=== PATIENT | male | born 1970 | race Two or more races ===

== ENCOUNTER 2018-01-16 16:54 | Emergency (ER) | payer BC ==
--- NOTE | 2018-01-16 17:51 | EDM.PDOC ---
<Lacey Blanca - Last Filed: 01/16/18 18:53> ED HPI GENERAL MEDICAL PROBLEM - General Chief Complaint: Skin Complaint Stated Complaint: BUMP/SWELLING RT LEG Time Seen by Provider: 01/16/18 17:45 - Related Data Allergies Allergy/AdvReac Type Severity Reaction Status Date / Time No Known Allergies Allergy Verified 01/16/18 17:09 Home Meds: Home Meds . [No Known Home Meds] 01/16/18 [History] Course - Vital Signs Last Recorded V/S: Last Vital Signs Temp 98.8 F 01/16/18 17:05 Pulse 98 01/16/18 17:05 Resp 20 01/16/18 17:05 BP 160/88 H 01/16/18 17:05 Pulse Ox 97 01/16/18 17:05 - Orders/Labs/Meds Orders: Active Orders 24 hr Category Date Time Status CULTURE BLOOD [BC] Stat Lab 01/16/18 18:06 Received CULTURE BLOOD [BC] Stat Lab 01/16/18 18:19 Received Blood Culture x2 Reflex Set [OM.PC] Stat Oth 01/16/18 17:47 Ordered Labs: Laboratory Tests 01/16/18 01/16/18 01/16/18 Range/Units 18:06 18:06 18:06 WBC 12.18 H (4.0-11.0) K/uL RBC 4.82 (4.50-5.90) M/uL Hgb 14.5 (13.0-17.0) g/dL Hct 41.8 (38.0-50.0) % MCV 86.7 (80.0-98.0) fL MCH 30.1 (27.0-32.0) pg MCHC 34.7 (31.0-37.0) g/dL RDW Std Deviation 43.2 (28.0-62.0) fl RDW Coeff of Germaine 14 (11.0-15.0) % Plt Count 184 (150-400) K/uL MPV 11.60 (7.40-12.00) fL Neut % (Auto) 71.6 (48.0-80.0) % Lymph % (Auto) 19.5 (16.0-40.0) % [place] % (Auto) 7.6 (0.0-15.0) % Eos % (Auto) 1.1 (0.0-7.0) % Baso % (Auto) 0.2 (0.0-1.5) % Neut # (Auto) 8.7 H (1.4-5.7) K/uL Lymph # (Auto) 2.4 (0.6-2.4) K/uL [place] # (Auto) 0.9 H (0.0-0.8) K/uL Eos # (Auto) 0.1 (0.0-0.7) K/uL Baso # (Auto) 0.0 (0.0-0.1) K/uL Nucleated RBC % 0.0 /100WBC Nucleated RBCs # 0 K/uL Lactate 0.8 (0.20-2.00) mmol/L Sodium 139 (136-148) mmol/L Potassium 4.0 (3.5-5.1) mmol/L Chloride 104 (98-107) mmol/L Carbon Dioxide 24.7 (21.0-32.0) mmol/L BUN 27 H (7.0-18.0) mg/dL Creatinine 1.1 (0.8-1.3) mg/dL Est Cr Clr Drug Dosing 84.80 mL/min Estimated GFR (MDRD) > 60.0 ml/min Glucose 86 (74-106) mg/dL Calcium 9.2 (8.5-10.1) mg/dL Meds: Medications Discontinued Medications Generic Name Dose Route Start Last Admin Trade Name Freq PRN Reason Stop Dose Admin Ceftriaxone Sodium 1,000 mg/ 4 mls @ 4 mls/sec 01/16/18 18:48 Lidocaine HCl IM 01/16/18 18:49 ONETIME ONE Departure - Departure Disposition: Home, Self-Care 01 Clinical Impression: Cellulitis, Abscess - Discharge Information Referrals: PCP,None [Primary Care Provider] - Forms: ED Department Discharge Additional Instructions: The following information is given to patients seen in the emergency department who are being discharged to home. This information is to outline your options for follow-up care. We provide all patients seen in our emergency department with a follow-up referral. The need for follow-up, as well as the timing and circumstances, are variable depending upon the specifics of your emergency department visit. If you don't have a primary care physician on staff, we will provide you with a referral. We always advise you to contact your personal physician following an emergency department visit to inform them of the circumstance of the visit and for follow-up with them and/or the need for any referrals to a consulting specialist. The emergency department will also refer you to a specialist when appropriate. This referral assures that you have the opportunity for follow-up care with a specialist. All of these measure are taken in an effort to provide you with optimal care, which includes your follow-up. Under all circumstances we always encourage you to contact your private physician who remains a resource for coordinating your care. When calling for follow-up care, please make the office aware that this follow-up is from your recent emergency room visit. If for any reason you are refused follow-up, please contact the [facility] emergency department at and asked to speak to the emergency department charge nurse. [facility] [address] [place] [id number] Follow-up with your local primary care provider or at the clinic listed above in 48-72 hours. Call tomorrow to get scheduled for an appointment next week. Tylenol alternating with ibuprofen. Stay off your leg, rest, take antibiotics as prescribed. Return to ER as needed as discussed. - My Orders Last 24 Hours: My Active Orders 01/16/18 17:47 Blood Culture x2 Reflex Set [OM.PC] Stat 01/16/18 18:06 CULTURE BLOOD [BC] Stat 01/16/18 18:19 CULTURE BLOOD [BC] Stat - Assessment/Plan Last 24 Hours: My Active Orders 01/16/18 17:47 Blood Culture x2 Reflex Set [OM.PC] Stat 01/16/18 18:06 CULTURE BLOOD [BC] Stat 01/16/18 18:19 CULTURE BLOOD [BC] Stat <Oralia Sarmiento - Last Filed: 01/16/18 19:06> ED HPI GENERAL MEDICAL PROBLEM - General Source of Information: Reports: Patient History Limitations: Reports: No Limitations - History of Present Illness INITIAL COMMENTS - FREE TEXT/NARRATIVE: HISTORY AND PHYSICAL: History of present illness: [Patient comes to the emergency room complaining of right posterior lower leg pain for the past 4-5 days. Area has become red, warm to touch, and swollen. Denies any injury and trauma. No previous history of similar injury. Has not taken any medication for his symptoms, but has applied mint and Tea Tree oil to his wound. ] Review of systems: As per history of present illness and below otherwise all systems reviewed and negative. Past medical history: As per history of present illness and as reviewed below otherwise noncontributory. Surgical history: As per history of present illness and as reviewed below otherwise noncontributory. Social history: No reported history of drug or alcohol abuse. Family history: As per history of present illness and as reviewed below otherwise noncontributory. Physical exam: HEENT: Atraumatic, normocephalic. Lungs: Clear to auscultation, breath sounds equal bilaterally. Heart: S1S2, regular. Abdomen: Soft, nondistended, nontender. Pelvis: Stable nontender. Genitourinary: Deferred. Rectal: Deferred. Extremities: 13cm x 9 cm area of erythema with central abscess. Tenderness with palpation. No swelling to ankle or foot. No decreased ROM to joints. Neurovascular unremarkable. Neuro: Awake, alert, oriented. Motor and sensory unremarkable throughout. Exam nonfocal. Diagnostics: [CBC, BMP, blood culture, lactate] Therapeutics: [Rocephin 1 gram] Impression: [abscess and cellulitis to posterior R lower leg] Plan: [WBC count 12.86. Lactate 0.8. BMP is unremarkable. Rocephin 1 g given in ER. Rx written for clindamycin 300 mg #40 sig one by mouth 4 times a day 10 days 0 refills. Referral given to follow up with local PCP. We discussed that follow- up is imperative to his infection improving. Tylenol alternating with ibuprofen as needed for discomfort. He is instructed to stay off his foot, rest, elevate and take antibiotics as prescribed.] Definitive disposition and diagnosis as appropriate pending reevaluation and review of above. Right Leg Pain Score (Numeric/FACES): 7 Past Medical History - Past Health History Medical/Surgical History: Denies Medical/Surgical History Social & Family History - Family History Family Medical History: Noncontributory - Tobacco Use Smoking Status *Q: Never Smoker - Caffeine Use Caffeine Use: Reports: Coffee - Recreational Drug Use Recreational Drug Use: No ED ROS GENERAL - Review of Systems Review Of Systems: ROS reveals no pertinent complaints other than HPI. ED EXAM, SKIN/RASH Exam: See Below Course - Orders/Labs/Meds Labs: Laboratory Tests 01/16/18 01/16/18 01/16/18 Range/Units 18:06 18:06 18:06 WBC 12.18 H (4.0-11.0) K/uL RBC 4.82 (4.50-5.90) M/uL Hgb 14.5 (13.0-17.0) g/dL Hct 41.8 (38.0-50.0) % MCV 86.7 (80.0-98.0) fL MCH 30.1 (27.0-32.0) pg MCHC 34.7 (31.0-37.0) g/dL RDW Std Deviation 43.2 (28.0-62.0) fl RDW Coeff of Germaine 14 (11.0-15.0) % Plt Count 184 (150-400) K/uL MPV 11.60 (7.40-12.00) fL Neut % (Auto) 71.6 (48.0-80.0) % Lymph % (Auto) 19.5 (16.0-40.0) % [place] % (Auto) 7.6 (0.0-15.0) % Eos % (Auto) 1.1 (0.0-7.0) % Baso % (Auto) 0.2 (0.0-1.5) % Neut # (Auto) 8.7 H (1.4-5.7) K/uL Lymph # (Auto) 2.4 (0.6-2.4) K/uL [place] # (Auto) 0.9 H (0.0-0.8) K/uL Eos # (Auto) 0.1 (0.0-0.7) K/uL Baso # (Auto) 0.0 (0.0-0.1) K/uL Nucleated RBC % 0.0 /100WBC Nucleated RBCs # 0 K/uL Lactate 0.8 (0.20-2.00) mmol/L Sodium 139 (136-148) mmol/L Potassium 4.0 (3.5-5.1) mmol/L Chloride 104 (98-107) mmol/L Carbon Dioxide 24.7 (21.0-32.0) mmol/L BUN 27 H (7.0-18.0) mg/dL Creatinine 1.1 (0.8-1.3) mg/dL Est Cr Clr Drug Dosing 84.80 mL/min Estimated GFR (MDRD) > 60.0 ml/min Glucose 86 (74-106) mg/dL Calcium 9.2 (8.5-10.1) mg/dL Meds: Medications Discontinued Medications Generic Name Dose Route Start Last Admin Trade Name Freq PRN Reason Stop Dose Admin Ceftriaxone Sodium 1,000 mg/ 4 mls @ 4 mls/sec 01/16/18 18:48 Lidocaine HCl IM 01/16/18 18:49 ONETIME ONE Departure - Departure Time of Disposition: 19:00 Condition: Good
[2018-01-16 18:43] LABS: CHLORIDE,CL 104 mmol/L (98-107); SODIUM,NA 139 mmol/L (136-148)
[2018-01-16] MEDS ORDERED: cefTRIAXone 1,000 MG in Lidocaine 1% 4 ML IM ONE (18:48)
== END 2018-01-16 19:32 | disposition home or self-care (01) ==
LOC: MW.ED 16:54
DX: L03.115 Cellulitis of right lower limb (principal); L02.415 Cutaneous abscess of right lower limb
CPT/HCPCS: 36415; 80048; 83605; 85025; 87040; 96372; 99283; J0696; J2001